=== PATIENT | female | born 1980 | race Caucasian/White ===

== ENCOUNTER 2019-06-27 00:38 | Day surgery (SDC) | payer OTHER, SELFPAY ==
[2019-06-12 14:29] VITALS: BMI 29.3
--- NOTE | 2019-06-26 15:02 | P.PNAN_ITS ---
Anes - Initial Pre Proc Eval Procedure: Operation Date: 06/27/19 07:30 Proposed Procedures p Labia Reduction - Jasbir Lopez MD Date/Time: 06/26/19 15:02 Surgeon: Jasbir Lopez MD Pre Op Diagnosis: Labial Hypertrophy Patient Data Age: 38 Gender: F Height: 1.65 m Weight: 80 kg Allergies Allergy/AdvReac Type Severity Reaction Status Date / Time hydrocodone Allergy Intermediate Hives / Verified 11/05/15 08:13 Red Face amoxicillin Allergy Hives/ Verified 06/12/19 14:32 SWELLING ibuprofen AdvReac Unknown STOMACH Unverified 11/05/15 08:13 UPSET Home Medications Medication Instructions Recorded Confirmed Type buspirone 15 mg PO TID 06/12/19 06/12/19 History divalproex 500 mg PO Q12H 06/12/19 06/12/19 History estradiol 2 mg PO DAILY 06/12/19 06/12/19 History hydroxyzine HCl 75 mg PO HS 06/12/19 06/12/19 History ranitidine HCl [Zantac] 150 mg PO BID 06/12/19 06/12/19 History Patient hx anesthesia problems: none Family hx anesthesia problems: none [facility] Past Medical History Medical History (Updated 06/26/19 @ 15:03 by Alitsair Garcia MD) Anxiety Bipolar 1 disorder Post-operative nausea and vomiting Social History Social History Gender identity (if verbalized by the patient): Female Anes - Eval Final PreProcedure Day of Procedure 06/26/19 15:02 Patient weight: overweight Heart: regular rate and rhythm Lungs: clear to auscultation and normal air movement Airway: Mallampati scale class II Neurological: alert and oriented Last oral intake: >/= 8 hours ASA classification: II Emergent: no Anesthetic plan: proceed Anesthesia type and monitoring: general GIVS Informed Consent: The patient's anesthetic plan and its attendant risks and bene fits were discussed with the patient/family/POA. Questions were solicited and answers provided to the satisfaction of the patient/family/POA.
--- NOTE | 2019-06-26 15:06 | WPDANESEPP ---
Anes - Eval Pre Procedure Procedure: Operation Date: 06/27/19 07:30 Proposed Procedures p Labia Reduction - Jasbir Lopez MD Date/Time: 06/26/19 15:06 Pre Op Diagnosis: Labial Hypertrophy Patient Data Age: 38 Gender: F Height: 1.65 m Weight: 80 kg Allergies Allergy/AdvReac Type Severity Reaction Status Date / Time hydrocodone Allergy Intermediate Hives / Verified 11/05/15 08:13 Red Face amoxicillin Allergy Hives/ Verified 06/12/19 14:32 SWELLING ibuprofen AdvReac Unknown STOMACH Unverified 11/05/15 08:13 UPSET Home Medications Medication Instructions Recorded Confirmed Type buspirone 15 mg PO TID 06/12/19 06/12/19 History divalproex 500 mg PO Q12H 06/12/19 06/12/19 History estradiol 2 mg PO DAILY 06/12/19 06/12/19 History hydroxyzine HCl 75 mg PO HS 06/12/19 06/12/19 History ranitidine HCl [Zantac] 150 mg PO BID 06/12/19 06/12/19 History Patient hx anesthesia problems: none Family hx anesthesia problems: none [facility] Past Medical History Medical History (Updated 06/26/19 @ 15:03 by Alistair Garcia MD) Anxiety Bipolar 1 disorder Post-operative nausea and vomiting Social History Social History Gender identity (if verbalized by the patient): Female Exam Day of Procedure 06/26/19 15:06
[2019-06-27] VITALS (10 sets, daily range): BP systolic 105–139; BP diastolic 46–82; PULSE 64–91; RESP 16–20; TEMP 36.4–36.5; O2SAT 96–100
[2019-06-27] MEDS: LACTATED RINGERS 1,000 ML 30 ML IV CONT (06:20)
--- NOTE | 2019-06-27 06:48 | WPDANESEFPP ---
Anes - Eval Final PreProcedure Day of Procedure 06/27/19 06:48 Patient weight: overweight Heart: regular rate and rhythm Lungs: clear to auscultation and normal air movement Airway: Mallampati scale class II Neurological: alert and oriented Last oral intake: >/= 8 hours ASA classification: II Emergent: no Anesthetic plan: proceed Anesthesia type and monitoring: general GIVS Informed Consent: The patient's anesthetic plan and its attendant risks and benefits were discussed with the patient/family/POA. Questions were solicited and answers provided to the satisfaction of the patient/family/POA.
--- NOTE | 2019-06-27 07:29 | WPDHPUPDATE1 ---
History and Physical Update Update Date/Time: 06/27/19 07:29 History and Physical has been reviewed, including an updated exam of the patient. There are NO changes in the patient's condition. Risks, benefits, and alternatives have been discussed and questions answered. Patient agrees to proceed with procedure.
[2019-06-27] MEDS: LIDO 1%/EPINEPHRINE 1:100,000 20 ML VIAL INFILTRATE (07:56)
[2019-06-27] MEDS: HYDROMORPHONE HCL 1 MG/ML INJ 0.25 MG IV PUSH ×8 (08:32→09:20)
--- NOTE | 2019-06-27 09:06 | PM.PROC ---
Procedure Note - Detailed Date of procedure: 06/27/19 Pre-op diagnosis: Labial Hypertrophy Post-op diagnosis: same Procedure performed: Labioplasty Description of procedure: The patient was taken the operating room. She has prepped and draped in the dorsal lithotomy position. The redundant labia was marked with a marker at its base. The marking was consistent with a smooth transition from 1 normal part of the labia to the other portion of the labia anteriorly to posteriorly. This was done bilateral fashion. Scalpel then used to make incisions along this marked line down the labia minora. It was 1st done on the patient's right side. This did incisions were made on both sides of the labia and there carried down to and through the subcutaneous tissue. The incision was then closed with interrupted 2 0 Prolene. This was done in interrupted fashion. The right-side fell well short of the clitoris. The left side extended to the the cutaneous tissue near the clitoris. It did not involve the clitoris. The left side was performed in identical fashion though the skin was trimmed very carefully around the clitoris as to not have redundant skin projecting out from the area of the clitoris. It was inferior to the clitoris where the incision ended on both sides. At the end of the procedure the incision were hemostatic. She tolerated the procedure well. She was taken cover stable condition. Sponge lap and needle counts were correct x2. Anesthesia: GLMA Surgeon: Jasbir Lopez MD Estimated blood loss (mL): 15 Drains: No Packing: No Pathology: yes Complications: No immediate complications Condition: stable Disposition: PACU Findings: There was redundant skin projecting out from the anterior half of the labia bilaterally. The projected out about 4 cm from the normal extent of the labia minora on both sides. On the left-sided continued up to in the infra clitoral skin.
== END 2019-06-27 10:35 | disposition home or self-care (01) ==
PROVIDERS: PCP Family Medicine; Visit Provider Obstetrics & Gynecology
PROC: (CPT 15839; principal; 2019-06-27 07:30)
DX: N90.60 Unspecified hypertrophy of vulva (principal); F31.9 Bipolar disorder, unspecified; F41.9 Anxiety disorder, unspecified
CPT/HCPCS: 15839; 88304; A9270; J0131; J1100; J1170; J1200; J2250; J2405; J2704; J3010; J7120

== ENCOUNTER 2019-07-04 01:35 | Day surgery (SDC) | payer OTHER, SELFPAY ==
[2019-07-03 15:03] VITALS: BMI 29.9
[2019-07-04] MEDS: LACTATED RINGERS 1,000 ML 30 ML IV CONT (09:45)
[2019-07-04 10:04] VITALS: BP 94/51; PULSE 68; TEMP 36.7; O2SAT 100
--- NOTE | 2019-07-04 10:53 | PM.IMHP ---
H&P: HPI History of Present Illness Chief complaint: Post Procedure Removal Of Sutures Narrative: Nevin Tang is a 38 year old female who presents for removal of vulvar sutures. She understands the risks, benefits, and alternatives. She could not tolerate this procedure in the office. Review of Systems Constitutional: Constitutional: Reports no additional constitutional complaints, Denies fatigue, Denies headache(s), Denies lethargy and Denies weakness Eyes: Eyes: Reports no additional eye complaints, Denies blurry vision and Denies photophobia ENT: Reports as per HPI, Denies headache(s) and Denies neck pain Cardiovascular: Cardiovascular: Denies chest pain, Denies diaphoresis, Denies leg edema, Denies palpitations and Denies dyspnea Respiratory: Respiratory: Denies hemoptysis, Denies dyspnea and Denies wheezing Gastrointestinal: Gastrointestinal: Denies abdominal pain, Denies melena, Denies bloating, Denies hematochezia, Denies nausea and Denies vomiting Genitourinary: Genitourinary: Reports no additional female genitourinary complaints Musculoskeletal: Musculoskeletal: Denies joint swelling, Denies neck pain, Denies numbness and Denies stiffness Neurologic: Denies Abnormal speech present, Denies confusion, Denies headache(s), Denies numbness and Denies weakness Psychiatric: Psychiatric: Denies anxiety, Denies confusion, Denies depression, Denies homicidal ideation and Denies suicidal ideation Endocrine: Endocrine: Denies fatigue and Denies palpitations Allergic/Immunologic: Allergic/Immunologic: Denies wheezing PMF[facility] Past Medical History Medical History (Updated 07/04/19 @ 10:54 by Jasbir Lopez MD) Anxiety Bipolar 1 disorder Post-operative nausea and vomiting Social History Social History Gender identity (if verbalized by the patient): Female Meds Home Medications and Allergies Home Medications Medication Instructions Recorded Confirmed Type buspirone 15 mg PO TID 06/12/19 07/03/19 History divalproex 500 mg PO Q12H 06/12/19 07/03/19 History estradiol 2 mg PO DAILY 06/12/19 07/03/19 History hydroxyzine HCl 75 mg PO HS 06/12/19 07/03/19 History ranitidine HCl [Zantac] 150 mg PO BID 06/12/19 07/03/19 History Allergies Allergy/AdvReac Type Severity Reaction Status Date / Time amoxicillin Allergy Severe GENERAL Verified 07/03/19 15:04 SWELLING hydrocodone Allergy Severe HIVES/REDNE Verified 07/03/19 15:04 SS/ITCHING ibuprofen AdvReac Mild ITCHY/NAUSE Verified 07/03/19 15:04 A Vital Signs Vital Signs - 24 hr 07/04/19 10:04 Temperature 98.0 F Pulse Rate 68 Blood Pressure 94/51 L Pulse Oximetry 100 Exam Const: General: healthy appearing, comfortable and no acute distress; No confusion Orientation/consciousness: No confusion Eyes: Direct Ophthalmoscopy: No photophobia Resp: Auscultation: clear to auscultation bilaterally, no rales, no rhonchi and no wheezes Cardio: Rate: regular rate Heart sounds: no click, no murmurs and no rubs GI: Inspection: non-distended GI Palp: No abdominal tenderness Auscultation: normal bowel sounds Neuro: General: No confusion Speech: No Abnormal speech present Extrem: General: normal to inspection, no pedal edema and no calf tenderness Assessment and Plan Assessment and plan (1) Hypertrophy of labia: Code(s): N90.60 - Unspecified hypertrophy of vulva Status: Acute Assessment and Plan: 38-year-old female presents for removal of sutures from the vulva. She is 1 week post opt from a labial plasty. She cannot tolerate removal sutures in the office. We have agreed to perform and under sedation. She understands the risks, benefits, and alternatives. She has completed the informed consent process and is ready to proceed.
--- NOTE | 2019-07-04 10:53 | WPDANESEPPF ---
Anes - Initial Pre Proc Eval Procedure: Operation Date: 07/04/19 11:00 Proposed Procedures p Removal Of Vulvar Stitches - Jasbir Lopez MD Date/Time: 07/04/19 10:53 Surgeon: Jasbir Lopez MD Pre Op Diagnosis: Post Procedure Removal Of Sutures Patient Data Age: 38 Gender: F Height: 1.65 m Weight: 80.25 kg Last Vital Signs Temp 36.7 C 07/04/19 10:04 Pulse 68 07/04/19 10:04 BP 94/51 L 07/04/19 10:04 Pulse Ox 100 07/04/19 10:04 Allergies Allergy/AdvReac Type Severity Reaction Status Date / Time amoxicillin Allergy Severe GENERAL Verified 07/03/19 15:04 SWELLING hydrocodone Allergy Severe HIVES/REDNE Verified 07/03/19 15:04 SS/ITCHING ibuprofen AdvReac Mild ITCHY/NAUSE Verified 07/03/19 15:04 A Home Medications Medication Instructions Recorded Confirmed Type buspirone 15 mg PO TID 06/12/19 07/03/19 History divalproex 500 mg PO Q12H 06/12/19 07/03/19 History estradiol 2 mg PO DAILY 06/12/19 07/03/19 History hydroxyzine HCl 75 mg PO HS 06/12/19 07/03/19 History ranitidine HCl [Zantac] 150 mg PO BID 06/12/19 07/03/19 History Patient hx anesthesia problems: none Family hx anesthesia problems: none PMF[facility] Past Medical History Medical History (Updated 06/26/19 @ 15:03 by Alistair Garcia MD) Anxiety Bipolar 1 disorder Post-operative nausea and vomiting Social History Social History Gender identity (if verbalized by the patient): Female Anes - Eval Final PreProcedure Day of Procedure 07/04/19 10:53 Patient weight: overweight Heart: regular rate and rhythm Lungs: clear to auscultation and normal air movement Airway: Mallampati scale class II Neurological: alert and oriented Last oral intake: >/= 8 hours ASA classification: II Emergent: no Anesthetic plan: proceed Anesthesia type and monitoring: general GIVS and standard monitoring Informed Consent: The patient's anesthetic plan and its attendant risks and benefits were discussed with the patient/family/POA. Questions were solicited and answers provided to the satisfaction of the patient/family/POA.
[2019-07-04] MEDS: LIDO 1%/EPINEPHRINE 1:100,000 20 ML VIAL 3 ML INFILTRATE (11:41)
--- NOTE | 2019-07-04 11:43 | SUR.OPER ---
EBL:[id number]
--- NOTE | 2019-07-04 11:54 | PM.PROC ---
Procedure Note - Detailed Date of procedure: 07/04/19 Pre-op diagnosis: Post Procedure Removal Of Sutures Labial hypertrophy Post-op diagnosis: same Procedure performed: Suture removal from the vulva Description of procedure: Patient's [facility] operating room. She was prepped draped in the dorsal lithotomy position after induction of mac anesthesia. The labia minora was injected with 1% lidocaine with epi under the suture line. She had a bilateral suture line about 6 cm on each side running from the periclitoral area to the mid labia. Sutures removed individually. Using scissors and pickups. The patient tolerated the procedure well. She is doing cover stable condition. Sponge lap needle counts were correct x2. Anesthesia: MAC Surgeon: Jasbir Lopez MD Estimated blood loss (mL): 0 Drains: No Packing: No Complications: No immediate complications Condition: stable Disposition: observation Findings: Intact suture line that is healing well from the periclitoral area to the mid labia bilaterally. Sutures removed and was hemostatic at the end the procedure.
[2019-07-04 11:55] VITALS: BP 100/45; PULSE 93; RESP 20; O2SAT 100
[2019-07-04 12:25] VITALS: BP 100/64; PULSE 64
[2019-07-04 12:55] VITALS: BP 104/53; PULSE 71; RESP 14
== END 2019-07-04 13:02 | disposition home or self-care (01) ==
PROVIDERS: PCP Family Medicine; Visit Provider Obstetrics & Gynecology
PROC: (CPT 15850; principal; 2019-07-04 11:00)
DX: Z48.02 Encounter for removal of sutures (principal); F31.9 Bipolar disorder, unspecified; F41.9 Anxiety disorder, unspecified
CPT/HCPCS: 15850; A9270; J1100; J2250; J2405; J2704; J3010; J7120